=== PATIENT | female | born 1990 | race Caucasian/White ===

== ENCOUNTER 2019-05-14 02:25 | Inpatient (IN) | payer OTHER ==
[~2019-05-14] VITALS: Ht 154.9 cm; Wt 78.8 kg
[~2019-05-14 02:25] MED LIST: FERR134T PO; PREN-19 PO
[2019-05-14 02:59] VITALS: BP 111/68; PULSE 64; RESP 20
[2019-05-14] MEDS ORDERED: LACTATED RINGER'S 1,000 ML IV PRN (04:02)
[2019-05-14] MEDS ORDERED: OXYTOCIN 30 UNITS/LR 500 ML IV SCH ×3 (04:30→10:00)
[2019-05-14] MEDS ORDERED: METHYLERGONOVINE 0.2 MG INJ IM PRN ×2 (04:30→16:30)
[2019-05-14] MEDS ORDERED: BUTORPHANOL 2 MG INJ IV PRN ×2 (04:30)
[2019-05-14] MEDS ORDERED: MINERAL OIL LIGHT 10 ML VIAL TOP PRN (04:30)
[2019-05-14] MEDS ORDERED: MISOPROSTOL 200 MCG TAB PR PRN ×2 (04:30→16:30)
[2019-05-14] MEDS ORDERED: CARBOPROST 250 MCG INJ IM PRN ×2 (04:30→16:30)
[2019-05-14] MEDS ORDERED: IBUPROFEN 600 MG TAB PO PRN (04:30)
[2019-05-14] MEDS ORDERED: OXYTOCIN 30 UNITS/LR 500 ML IV PRN ×2 (04:30→16:30)
[2019-05-14] MEDS ORDERED: LIDOCAINE 1% (MPF) 30 ML INJ INJ PRN (04:30)
[2019-05-14] MEDS: LACTATED RINGER'S 1,000 ML IV SCH ×2 (05:19→12:55)
[2019-05-14] MEDS ORDERED: FENTAnyl 2MCG/ML-ROPIV 0.2% 100 ML ONE (10:51)
[2019-05-14] MEDS ORDERED: NALOXONE (0.4 MG/ML) INJ IV PRN (11:00)
[2019-05-14] MEDS ORDERED: DIPHENHYDRAMINE 50 MG INJ IV PRN (11:00)
[2019-05-14] MEDS ORDERED: ONDANSETRON 4 MG INJ IV PRN (11:00)
[2019-05-14] MEDS ORDERED: FENTAnyl 2MCG/ML-ROPIV 0.2% 100 ML BAG EPI SCH (11:00)
[2019-05-14 16:10] VITALS: BP 113/69; PULSE 67; RESP 18
[2019-05-14] MEDS ORDERED: ZOLPIDEM 5 MG TAB PO PRN (16:30)
[2019-05-14] MEDS ORDERED: BENZOCAINE 20% 56 ML SPRAY TOP PRN (16:30)
[2019-05-14] MEDS ORDERED: OXYCODONE/ASPIRIN (4.88/325) TAB PO PRN ×2 (16:30)
[2019-05-14] MEDS ORDERED: WITCH HAZEL/GLYCERIN PAD PR PRN (16:30)
[2019-05-14] MEDS ORDERED: LANOLIN HPA 1 PKT TOP PRN (16:30)
[2019-05-14] MEDS: IBUPROFEN 600 MG TAB PO SCH (18:15)
[2019-05-14] MEDS: SENNA/DOCUSATE NA (8.6MG/50MG) TAB PO SCH (21:21)
[2019-05-15] VITALS (7 sets, daily range): BP systolic 99–139; BP diastolic 57–88; PULSE 57–75; RESP 18
[2019-05-15] MEDS: IBUPROFEN 600 MG TAB PO SCH ×5 (00:32→23:49)
[2019-05-15] MEDS: SENNA/DOCUSATE NA (8.6MG/50MG) TAB PO SCH ×2 (08:56→21:07)
[2019-05-16 03:44] VITALS: BP 122/74; PULSE 72; RESP 17
[2019-05-16] MEDS: IBUPROFEN 600 MG TAB PO SCH ×2 (05:35→12:12)
[2019-05-16 08:00] VITALS: BP 123/73; PULSE 57; RESP 16
[2019-05-16] MEDS: SENNA/DOCUSATE NA (8.6MG/50MG) TAB PO SCH (08:33)
[2019-05-16] MEDS ORDERED: DIPHTH/TET/ACEL PERTUSS (ADULT) 0.5 ML VIAL IM* ONE (09:00)
== END 2019-05-16 16:49 | disposition home or self-care (01) | DRG 807 ==
LOC: L-D 02:25 → OBT 02:25 → L-D 03:52 → OBT 03:52 → PP1 15:57
PROVIDERS: ADMIT Specialist; ATTEND Specialist
PROC: 10E0XZZ Delivery of Products of Conception, External Approach (ICD-10-PCS; principal; 2019-05-14)
PROC: 4A1HXCZ Monitoring of Products of Conception, Cardiac Rate, External Approach (ICD-10-PCS; 2019-05-14)
DX: O24.420 Gestational diabetes mellitus in childbirth, diet controlled (principal); Z37.0 Single live birth; Z3A.39 39 weeks gestation of pregnancy
CPT/HCPCS: 62322; 81001; 81003; 82962; 85025; 85610; 85730; 86592; 86850; 86900; 86901; 87086; 87340; G0463; J2590; J3010; J7120